=== PATIENT | female | born 1990 | race Caucasian/White ===

== ENCOUNTER 2023-04-09 10:35 | Outpatient (CLI) | payer BC, SELFPAY | END 2023-04-09 10:36 | disposition home or self-care (01) | PROVIDERS: Visit Provider Registered Nurse | DX: Z01.419 Encounter for gynecological examination (general) (routine) without abnormal findings (principal); Z13.6 Encounter for screening for cardiovascular disorders; Z13.1 Encounter for screening for diabetes mellitus | CPT/HCPCS: 80061; 82947 ==

== ENCOUNTER 2024-03-03 13:51 | Outpatient (CLI) | payer BC, SELFPAY ==
--- NOTE | 2024-03-03 14:00 | CRLHL7_ITS ---
For Patients: As a result of the Cures Act, medical imaging exams and procedure reports are released immediately into your electronic medical record. You may view this report before your referring provider. If you have questions, please contact your health care provider. INDICATION: First trimester scan, establish dates. COMPARISON: None. TECHNIQUE: Real-time ferrari-scale imaging of the pelvis was performed. FINDINGS: Sonographic imaging demonstrates a single living intrauterine gestation. The embryo demonstrates a regular cardiac rate measuring 165 beats per minute. The embryo`s crown-rump length measurement of 1.5 cm corresponds to a gestational age of 7 weeks 6 days with a sonographic due date of 10/14/2024. There is a normal-appearing yolk sac. There are no gross abnormalities noted within the embryo at this early state of development. The gestational sac has a normal appearance. There is a 1.7 x 0.9 x 1.3 cm perigestational hemorrhage. The amount of fluid within the sac appears appropriate for gestational age. The cervix is closed. The myometrium appears normal. Corpus luteal cyst right ovary. Left ovary not visualized. There are no suspicious fluid collections noted in the cul-de-sac. IMPRESSION: Single living intrauterine with sonographic gestational age 7 weeks 6 days and sonographic due date of 10/14/2024. Subchorionic hemorrhage measuring 1.7 x 0.9 x 1.3 cm. Dictated by Waldo Moreno MD @ 03/04/2024 10:16:12 AM (Electronically Signed)
== END 2024-03-03 13:52 | disposition home or self-care (01) ==
LOC: US 13:52
PROVIDERS: PCP Registered Nurse; Visit Provider Registered Nurse
DX: Z34.91 Encounter for supervision of normal pregnancy, unspecified, first trimester (principal); O20.9 Hemorrhage in early pregnancy, unspecified; Z3A.01 Less than 8 weeks gestation of pregnancy
CPT/HCPCS: 76817; 86703; 86706; 86803; 86850; 86900; 86901; 87086; 87340; 87491; 87591

== ENCOUNTER 2024-03-03 14:57 | Outpatient (CLI) | payer BC, SELFPAY ==
[2024-03-03 19:45] LABS: Chlamydia DNA Amplified* NOT DETECTED (No Detected); GC DNA Amplified* NOT DETECTED (No Detected)
== END 2024-03-03 14:58 | disposition home or self-care (01) ==
PROVIDERS: PCP Registered Nurse; Visit Provider Registered Nurse
DX: Z34.92 Encounter for supervision of normal pregnancy, unspecified, second trimester (principal)
CPT/HCPCS: 86592; 86703; 86704; 86706; 86762; 86787; 86803; 86850; 86900; 86901; 87086; 87186; 87340; 87491; 87591

== ENCOUNTER 2024-05-04 07:47 | Outpatient (CLI) | payer BC, SELFPAY | END 2024-05-04 07:48 | disposition home or self-care (01) | LOC: NFLDREF 11:37 | PROVIDERS: Visit Provider Obstetrics & Gynecology | DX: Z34.92 Encounter for supervision of normal pregnancy, unspecified, second trimester (principal); R73.09 Other abnormal glucose; Z68.41 Body mass index [BMI] 40.0-44.9, adult; Z3A.15 15 weeks gestation of pregnancy | CPT/HCPCS: 82951; 82952 ==

== ENCOUNTER 2024-05-19 07:40 | Outpatient (CLI) | payer BC, SELFPAY | END 2024-05-19 07:41 | disposition home or self-care (01) | LOC: US 07:41 | PROVIDERS: Visit Provider Obstetrics & Gynecology | DX: Z34.92 Encounter for supervision of normal pregnancy, unspecified, second trimester (principal); Z3A.20 20 weeks gestation of pregnancy | CPT/HCPCS: 76811 ==

== ENCOUNTER 2024-06-16 10:50 | Outpatient (CLI) | payer BC, SELFPAY | END 2024-06-16 10:51 | disposition home or self-care (01) | LOC: US 10:50 | PROVIDERS: Visit Provider Obstetrics & Gynecology | DX: O99.212 Obesity complicating pregnancy, second trimester (principal); Z68.41 Body mass index [BMI] 40.0-44.9, adult; Z3A.23 23 weeks gestation of pregnancy | CPT/HCPCS: 76816 ==

== ENCOUNTER 2024-07-22 07:30 | Outpatient (CLI) | payer BC, SELFPAY | END 2024-07-22 07:31 | disposition home or self-care (01) | LOC: NFLDREF 07-25 04:11 | PROVIDERS: Visit Provider Obstetrics & Gynecology | DX: Z34.93 Encounter for supervision of normal pregnancy, unspecified, third trimester (principal); O99.213 Obesity complicating pregnancy, third trimester; Z3A.28 28 weeks gestation of pregnancy | CPT/HCPCS: 82951; 82952; 86592 ==

== ENCOUNTER 2024-07-22 08:37 | Outpatient (CLI) | payer BC, SELFPAY ==
--- NOTE | 2024-07-22 08:45 | CRLHL7_ITS ---
For Patients: As a result of the Century Cures Act, medical imaging exams and procedure reports are released immediately into your electronic medical record. You may view this report before your referring provider. If you have questions, please contact your health care provider. INDICATION: Obesity COMPARISON: 06/16/2024 TECHNIQUE: Real time ferrari scale imaging of the fetus was performed. FINDINGS: Sonographic imaging demonstrates a single living intrauterine gestation. Fetus demonstrates a regular cardiac rate of 154 beats per minute. Fetus has a vertex position. The placenta lies posterior fundal. Amniotic fluid volume appears normal and there is a single deepest vertical pocket: 5.4 cm. The estimated weight is 1299gm which lies at the 66th %. On the prior OB ultrasound exam dated 06/16/2024 the estimated weight was at the 29th%. BPD 49th percentile. HC 55th percentile. AC is 68th percentile. FL 52nd percentile. The HC/AC ratio measures 1.09 range (0.99-1.21). IMPRESSION: Sonographic gestational age 28 weeks 6 days and sonographic due date of 10/08/2024. Sonographic age is 5 days ahead of the clinical age. Estimated weight at 66th percentile. Abdominal circumference 68th percentile. Dictated by Waldo Moreno MD @ 07/26/2024 6:05:10 AM (Electronically Signed)
== END 2024-07-22 08:38 | disposition home or self-care (01) ==
LOC: US 08:38
PROVIDERS: Visit Provider Obstetrics & Gynecology
DX: O99.213 Obesity complicating pregnancy, third trimester (principal); Z3A.28 28 weeks gestation of pregnancy
CPT/HCPCS: 76816; 82951; 82952

== ENCOUNTER 2024-09-03 09:07 | Outpatient (CLI) | payer BC, SELFPAY ==
--- NOTE | 2024-09-03 09:15 | CRLHL7_ITS ---
For Patients: As a result of the Century Cures Act, medical imaging exams and procedure reports are released immediately into your electronic medical record. You may view this report before your referring provider. If you have questions, please contact your health care provider. INDICATION: BMI TECHNIQUE: Real time ferrari scale imaging of the fetus was performed. COMPARISON: 07/22/2024 FINDINGS: Sonographic imaging demonstrates a single living intrauterine gestation. Fetus demonstrates a regular cardiac rate of 144 beats per minute. Fetus has a vertex position. The placenta lies posterior. Amniotic fluid volume appears normal and there is a single deepest pocket of 4.2 cm. The estimated weight is 2312gm which lies at the 34th %. On the prior OB ultrasound dated 07/22/2024 the estimated weight was at the 66th percentile. BPD 50th percentile. HC 49th percentile. AC 44th percentile. FL is 16th percentile. The fetus was active. Absent breathing movements. There was normal flexion and extension of the trunk and extremities. IMPRESSION: Biophysical profile 03/13. Sonographic gestational age 34 weeks 2 days and sonographic due date 10/13/2024. Good correlation with dates. Normal interval growth. Estimated weight 34th percentile. Abdominal circumference 44th percentile. Dictated by Waldo Moreno MD @ 09/03/2024 11:41:40 AM (Electronically Signed)
== END 2024-09-03 09:08 | disposition home or self-care (01) ==
LOC: US 09:07
PROVIDERS: Visit Provider Obstetrics & Gynecology
DX: O99.213 Obesity complicating pregnancy, third trimester (principal); Z68.41 Body mass index [BMI] 40.0-44.9, adult; Z3A.34 34 weeks gestation of pregnancy
CPT/HCPCS: 76816; 76819

== ENCOUNTER 2024-09-10 07:14 | Outpatient (CLI) | payer BC, SELFPAY ==
--- NOTE | 2024-09-10 07:15 | CRLHL7_ITS ---
For Patients: As a result of the Century Cures Act, medical imaging exams and procedure reports are released immediately into your electronic medical record. You may view this report before your referring provider. If you have questions, please contact your health care provider. INDICATION: High BMI COMPARISON: 09/03/2024 TECHNIQUE: Real time ferrari scale imaging of the fetus was performed. Without non-stress testing. FINDINGS: Sonographic imaging demonstrates a single living intrauterine gestation. Fetus demonstrates a regular cardiac rate of 135 beats per minute. Fetus has a vertex position. The amniotic fluid volume appears normal and there is a single deepest pocket measurement of 3.8 cm. The fetus was active and demonstrated normal breathing movements. There was normal flexion and extension of the trunk and extremities. IMPRESSION: Normal biophysical profile score of 8 out of 8. Dictated by Waldo Moreno MD @ 09/11/2024 6:04:44 PM (Electronically Signed)
== END 2024-09-10 07:15 | disposition home or self-care (01) ==
LOC: US 07:14
PROVIDERS: Visit Provider Obstetrics & Gynecology
DX: O99.210 Obesity complicating pregnancy, unspecified trimester (principal); Z68.41 Body mass index [BMI] 40.0-44.9, adult
CPT/HCPCS: 76819

== ENCOUNTER 2024-09-17 07:15 | Outpatient (CLI) | payer BC, SELFPAY ==
--- NOTE | 2024-09-17 07:15 | CRLHL7_ITS ---
For Patients: As a result of the Century Cures Act, medical imaging exams and procedure reports are released immediately into your electronic medical record. You may view this report before your referring provider. If you have questions, please contact your health care provider. INDICATION: BMI 40-44 COMPARISON: 09/10/2024 TECHNIQUE: Real time ferrari scale imaging of the fetus was performed. Without non-stress testing. FINDINGS: Sonographic imaging demonstrates a single living intrauterine gestation. Fetus demonstrates a regular cardiac rate of 145 beats per minute. Fetus has a vertex position. The amniotic fluid volume appears normal and there is a single deepest pocket measurement of 4.4 cm. The fetus was active and demonstrated normal breathing movements. There was normal flexion and extension of the trunk and extremities. IMPRESSION: Normal biophysical profile score of 8 out of 8. Dictated by Waldo Moreno MD @ 09/17/2024 9:51:59 AM (Electronically Signed)
== END 2024-09-17 07:16 | disposition home or self-care (01) ==
LOC: US 07:16
PROVIDERS: Visit Provider Obstetrics & Gynecology
DX: O99.213 Obesity complicating pregnancy, third trimester (principal); Z3A.36 36 weeks gestation of pregnancy
CPT/HCPCS: 76819

== ENCOUNTER 2024-09-17 08:32 | Outpatient (CLI) | payer BC, SELFPAY ==
[2024-09-18 10:23] LABS: Strep B DNA Probe Negative (Negative)
[2024-09-18 11:21] LABS: Strep B Susceptibility Needed? No
== END 2024-09-17 08:33 | disposition home or self-care (01) ==
PROVIDERS: Visit Provider Obstetrics & Gynecology
DX: Z34.03 Encounter for supervision of normal first pregnancy, third trimester (principal)
CPT/HCPCS: 82565; 82570; 84156; 84450; 84460; 84520; 84550; 87081; 87653

== ENCOUNTER 2024-09-19 10:57 | Outpatient (CLI) | payer BC, SELFPAY ==
[2024-09-19] VITALS (8 sets, daily range): BP systolic 103–117; BP diastolic 63–73; PULSE 86–102; TEMP 36.7
[2024-09-19 11:30] LABS: Hematocrit 34.8 % (33.0-51.0); Hemoglobin* 11.9 gm/dL (12.0-16.0); Mean Corpuscular HGB Conc 34 gm/dL (32-36); Mean Corpuscular Hemoglobin 30 pg (26-34); Mean Corpuscular Volume 89 fL (80-100); Platelet Count* 207 K/uL (140-440); Red Blood Count 3.91 m/uL (4.00-5.20); Slide Review Reflex No; White Blood Count* 6.87 K/uL (4.50-11.00)
[2024-09-19 11:58] LABS: Alanine Aminotransferase* 79 U/L (4-35); Aspartate Amino Transferase* 44 U/L (12-35); Blood Urea Nitrogen* 3 mg/dL (5-24); Creatinine* 0.5 mg/dL (0.5-1.5); Estimated Glomerular Filt Rate 128 ml/min
[2024-09-19 12:18] LABS: Total Protein Urine 9 mg/dL
[2024-09-19 12:19] LABS: Protein Creatinine Ratio Urine 0.07 (0-0.19)
[2024-09-19 12:45] LABS: Albumin* 3.3 g/dL (3.3-5.0)
[2024-09-19 12:48] LABS: Alanine Aminotransferase* 77 U/L (4-35); Alkaline Phosphatase* 136 U/L (40-150); Aspartate Amino Transferase* 42 U/L (12-35); Bilirubin Direct* 0.2 mg/dL (0.0-0.5); Bilirubin Total* 0.4 mg/dL (0.1-1.5); Uric Acid* 3.2 mg/dL (2.2-8.4)
[2024-09-19] MEDS: BETAMETHASONE SOD PHOS/ACETATE 6 MG/ML ML 12 MG IM (13:29)
--- NOTE | 2024-09-19 14:07 | PC.OBNST ---
NST Note NST Note Start: 09/19/24 11:03 Freq: ONCE Status: Active Protocol: Document 09/19/24 13:38 HCR (Rec: 09/19/24 14:07 HCR [id number]) NST Note 1 Para (# of births) 0 EDC 10/13/23 Gestational Age In Weeks & Days 88 Weeks & 6 Days Patient Presented with Complaint(s) of Other Other Complaints Scheduled outpatient for Pre-E labs and serial BP's Reactive Yes Appropriate for Gestational Age Yes RN Paul Villafana, RN Date 09/19/24 Reactive Yes Appropriate for Gestational Age Yes SATURNINO Epstein RNC Date 09/19/24 OB NST charge Yes Complete NST Note via Write Note Yes The provider's electronic signature indicates the NST is reactive/appropriate for gestational age. *Note to provider: If an addendum is required, open the patient's chart and click on the note under the Nurse/Allied Health tab.
--- NOTE | 2024-09-19 16:57 | PM.OBLDTN ---
OB - Triage/Final Diagnosis Visit Information Date of evaluation: 09/19/24 Narrative: The patient is a 33 year old 1 para 0 woman at 36 weeks, 4 days gestation who presents for follow up of elevated diastolic BP and transaminases noted on 09/17. On that day, she had a routine visit in which an isolated BP of 122/90 was noted; this was the first time she has had elevated BP this . She denies GOMEZ, visual changes or RUQ pain at that time. Her labs that day were notable for normal protein:creatinine and normal HELLP labs, with the exception of transaminitis: AST 42, ALT 69 on 09/17. We have no baseline labs for comparison. Given this, she was given a home BP cuff and asked to return for serial BP measurements and repeat labs today. She reports to the RNs that she had occasional, mild GOMEZ. Her BPs at home have all been normal. Systolics 120s or 110s. Today, her blood pressures are all entirely normal which highest SBP 117, highest DBP 72. Labs are again all normal with the exception of continuing transaminitis: AST 42, ALT 77. Labs have included uric acid and complete liver panel. NST is reactive, reassuring. A: Transaminitis in . One isolated elevation of diastolic BP, with all DBPs today solidly within lower end of normal. No proteinuria. Thus, I do not think this is consistent with preeclampsia. Differential diagnosis includes fatty liver, hepatitis. Doubt gallstones given lack of pain. P: I will continue to monitor her closely. In an abundance of caution, she was given betamethasone today, and will return tomorrow for repeat injection. Return to clinic Friday or sooner; will arrange for repeat labs and RUQ US around the time of that visit. Evaluation Laboratory results: Laboratory Tests 09/19/24 09/19/24 09/19/24 Range/Units 11:20 11:20 11:20 WBC 6.87 (4.50-11.00) K/uL RBC 3.91 L (4.00-5.20) m/uL Hgb 11.9 L (12.0-16.0) gm/dL Hct 34.8 (33.0-51.0) % MCV 89 (80-100) fL MCH 30 (26-34) pg MCHC 34 (32-36) gm/dL Plt Count 207 (140-440) K/uL BUN 3 L (5-24) mg/dL Creatinine 0.5 (0.5-1.5) mg/dL Estimated GFR 128 ml/min Uric Acid 3.2 (2.2-8.4) mg/dL Total Bilirubin 0.4 (0.1-1.5) mg/dL Direct Bilirubin 0.2 (0.0-0.5) mg/dL AST 42 H 44 H (12-35) U/L ALT 77 H 79 H (4-35) U/L Alkaline Phosphatase 136 (40-150) U/L Total Protein 6.0 (6.0-8.3) g/dL Albumin 3.3 (3.3-5.0) g/dL Urine Creatinine mg/dL Protein/Creatinin Ratio (0-0.19) Urine Total Protein mg/dL Hepatitis A IgM Ab Pending Hep Bs Antigen Pending Hep B Core IgM Ab Pending Hep C Ab Index (ARIADNA) Pending Hep C Ab Interp ARIADNA Pending Hepatitis Interpret Pending 09/19/24 Range/Units 11:14 WBC (4.50-11.00) K/uL RBC (4.00-5.20) m/uL Hgb (12.0-16.0) gm/dL Hct (33.0-51.0) % MCV (80-100) fL MCH (26-34) pg MCHC (32-36) gm/dL Plt Count (140-440) K/uL BUN (5-24) mg/dL Creatinine (0.5-1.5) mg/dL Estimated GFR ml/min Uric Acid (2.2-8.4) mg/dL Total Bilirubin (0.1-1.5) mg/dL Direct Bilirubin (0.0-0.5) mg/dL AST (12-35) U/L ALT (4-35) U/L Alkaline Phosphatase (40-150) U/L Total Protein (6.0-8.3) g/dL Albumin (3.3-5.0) g/dL Urine Creatinine 126.0 mg/dL Protein/Creatinin Ratio 0.07 (0-0.19) Urine Total Protein 9 mg/dL Hepatitis A IgM Ab Hep Bs Antigen Hep B Core IgM Ab Hep C Ab Index (ARIADNA) Hep C Ab Interp ARIADNA Hepatitis Interpret Vital signs: Vital Signs - 24 hr 09/19/24 11:26 09/19/24 11:41 09/19/24 11:56 Temperature 98.1 F Pulse Rate 102 H 92 93 Blood Pressure 112/73 104/70 108/67 09/19/24 12:11 09/19/24 12:26 09/19/24 12:41 Temperature Pulse Rate 88 86 93 Blood Pressure 113/64 103/65 117/66 09/19/24 12:56 09/19/24 13:13 Temperature Pulse Rate 92 96 Blood Pressure 107/63 115/72 Final Diagnosis (1) Transaminitis: Status: Acute
[2024-09-21 19:25] LABS: Hep A Ab, IgM Negative (Negative); Hep B Core Ab, IgM Negative (Negative); Hep B Surface Antigen Negative (Negative); Hep C Ab by CIA Index 0.08 IV; Hep C Ab by CIA Interp Negative (Negative)
== END 2024-09-19 13:51 | disposition home or self-care (01) ==
LOC: OB CLI 10:57 → OB 10:59
PROVIDERS: Visit Provider Obstetrics & Gynecology
DX: O10.913 Unspecified pre-existing hypertension complicating pregnancy, third trimester (principal); O99.213 Obesity complicating pregnancy, third trimester; R74.01 Elevation of levels of liver transaminase levels; O14.13 Severe pre-eclampsia, third trimester; Z3A.36 36 weeks gestation of pregnancy
CPT/HCPCS: 36415; 59025; 80074; 80076; 82565; 82570; 84156; 84450; 84460; 84520; 84550; 85027; G0463; J0702

== ENCOUNTER 2024-09-20 09:27 | Outpatient (CLI) | payer BC, SELFPAY | END 2024-09-20 09:28 | disposition home or self-care (01) | PROVIDERS: PCP Obstetrics & Gynecology; Visit Provider Obstetrics & Gynecology | DX: O14.13 Severe pre-eclampsia, third trimester (principal); Z3A.36 36 weeks gestation of pregnancy | CPT/HCPCS: 84450; 84460 ==

== ENCOUNTER 2024-09-20 11:56 | Outpatient (CLI) | payer BC, SELFPAY ==
--- NOTE | 2024-09-20 12:15 | CRLHL7_ITS ---
For Patients: As a result of the Century Cures Act, medical imaging exams and procedure reports are released immediately into your electronic medical record. You may view this report before your referring provider. If you have questions, please contact your health care provider. INDICATION: Elevated liver enzymes COMPARISON: none TECHNIQUE: Real time ferrari scale imaging and color Doppler analysis was performed of the right upper quadrant. FINDINGS: The patient`s liver is of normal size and has mildly coarsened echogenicity. Main portal vein measures 8 millimeters. There is a normal appearance of the hepatic IVC and proximal abdominal aorta. There is no evidence of ascites. The gallbladder is of normal size and there is no evidence of intraluminal stones or sludge. The gallbladder wall measures 2 mm in thickness. The common bile duct is of normal size and measures 3.3 mm in diameter at the level of the jason hepatis. The pancreas appears normal. There is no evidence of a stone or hydronephrosis within the right kidney. The right kidney measures 11.9 cm in length. IMPRESSION: Mild hepatic steatosis. Remainder unremarkable. Dictated by Waldo Moreno MD @ 09/20/2024 12:43:11 PM (Electronically Signed)
== END 2024-09-20 11:57 | disposition home or self-care (01) ==
LOC: US 11:57
PROVIDERS: Visit Provider Obstetrics & Gynecology
DX: O14.13 Severe pre-eclampsia, third trimester (principal); Z3A.36 36 weeks gestation of pregnancy
CPT/HCPCS: 76705

== ENCOUNTER 2024-09-20 14:03 | Inpatient (IN) | payer BC, SELFPAY ==
[2024-09-20] VITALS (27 sets, daily range): BP systolic 88–128; BP diastolic 51–75; PULSE 77–99; RESP 16–22; TEMP 36.6–36.8; O2SAT 93–100; BMI 43.2
[2024-09-20] MEDS: MAGNESIUM IV 4 GM/100 ML PIGGYBACK IVPB (14:50)
[2024-09-20] MEDS: LACTATED RINGERS 1000 ML 1,000 ML 75 ML IV (14:51)
[2024-09-20] MEDS: MAGNESIUM Infusion 40 GM/1,000 ML IV.SOLN IVPB (15:24)
[2024-09-20 16:14] LABS: Hematocrit 33.4 % (33.0-51.0); Hemoglobin* 10.9 gm/dL (12.0-16.0); Mean Corpuscular HGB Conc 33 gm/dL (32-36); Mean Corpuscular Hemoglobin 30 pg (26-34); Mean Corpuscular Volume 93 fL (80-100); Platelet Count* 211 K/uL (140-440); Red Blood Count 3.58 m/uL (4.00-5.20); White Blood Count* 10.32 K/uL (4.50-11.00)
[2024-09-20 16:36] LABS: Alanine Aminotransferase* 112 U/L (4-35); Aspartate Amino Transferase* 63 U/L (12-35); Blood Urea Nitrogen* 4 mg/dL (5-24); Creatinine* 0.4 mg/dL (0.5-1.5); Est. Creatinine Clearance* 167.03; Estimated Glomerular Filt Rate 135 ml/min
[2024-09-20 16:41] LABS: Slide Review Reflex No
[2024-09-20 17:36] LABS: Fibrinogen* 539 mg/dL (200-450); Partial Thromboplastin Time* 23 Seconds (23-33)
--- NOTE | 2024-09-20 19:02 | P.OBHP_ITS ---
OB - H&P: HPI Labor/Induction History of Present Illness Time Seen by Provider: 17:30 Date Seen: 09/20/24 Chief Complaint: The patient is a 33 year old 1 para 0 at 36w5d gestation, who presents for IOL due to atypical pre-eclampsia with severe features. Endorses new onset of persistent headache that she's been treating with caffeine. Denies vision changes, SOB, right upper quadrant/epigastric pain, or rapidly expanding edema. She's only had 1 mild ranging BP. However, her transaminitis has been up trending for the last 4 days. Currently AST is at 63 and ALT at 112. Abdominal US: Mild steatosis. Remainder unremarkable. Denies any new risk factors for hepatitis. Hepatitis panel pending. Denies itching, hepatotoxic ingestion, or alcohol abuse. Blood glucose today was 130. Active movement. Denies Ctx, LOF, vaginal bleeding or abnormal vaginal discharge. There was great difficulty with IV insertion. It took multiple attempts/ people from Anesthesiology team to be able to put in 2 IVs for her. One IV was placed on her right hand and the other her right wrist. She is having significant discomfort with having 2 IV sites in the same area. Reports that she did not feel well during insertion attempts. Had flushing/dizziness. Has improved since. Of note, she had not had anything to drink all day per request of radiology for abdominal ultrasound. She feels very dehydrated in her urine is extremely concentrated. She has IV fluid running currently. Will ask for reassessment of IV sites. Chief complaint: maternity Narrative: Denisse Gray is a 33 year old female Specific Issues/Plans G 1 P 0 H&P 09/17 Dr. Barajas in the [facility] in [place] in June!! Only sex and name 1. BMI 43.9 * Hemoglobin A1c WNL * Nutrition referral placed. * Begin low-dose aspirin at 12 weeks to reduce risk of preeclampsia * Early GDM testing between 16 and 20 weeks - elevated at 160 mg/dL * [x] Early 3 hour GTT: all values normal * [x] repeat 3 hour at 28 weeks - all normal * Level 2 ultrasound: within normal limits of visualized anatomy, repeat in 4 weeks to complete * [x] f/u US on 06/16 with MFM at [facility] - anatomy WNL, growth at 26%ile and AC 24%ile * Anesthesia referral * Weekly BPP beginning at 34 weeks ( testing form completed) * Growth ultrasound at 28 and 34 weeks 2. Asymptomatic UTI. Treated with cephalexin. 3. One, isolated elevated diastolic BP of 90 on 09/17. HELLP labs notable for normal protein:creatinine, elevated transaminases (AST 42, ALT 69 on 09/17) On Center 09/19: All BPs low-normal, AST 42, ALT 77, still normal protein:creatinine No baseline LFTs available for review Hepatitis panel pending. Betamethasone #1 given 09/19 To arrange for RUQ US Covid: Not vaccinated. Recommended. Declines. Flu: Declines Tdap: 08/06/24 RSV: 09/10 Growth ultrasound 09/03: Composite 2312 g, 34th percentile. BPD 58th percentile, HC 49th percentile, AC 44th percentile, femur length 16 percentile. Vertex, SDP 4.2cm. 03/13 BPP with subsequent reactive NST in clinic. Meds Home Medications and Allergies Home Medications ?Medication ?Instructions ?Recorded ?Confirmed ?Type docosahexaenoic acid 200 mg mg PO 03/03/24 09/20/24 History capsule ( DHA) calcium 600 mg (as cap PO 04/01/24 09/20/24 History carbonate)-vitamin D3 10 mcg (400 unit) capsule aspirin 81 mg chewable tablet 81 mg PO QDAY 09/03/24 09/20/24 History Allergies Allergy/AdvReac Type Severity Reaction Status Date / Time No Known Drug Allergies Allergy Verified 09/20/24 10:35 OB - H&P: Exam Physical Exam: Vital signs: Temp Pulse Resp BP Pulse Ox 98.2 F 82 16 128/75 100 09/20/24 18:10 09/20/24 18:10 09/20/24 18:10 09/20/24 18:10 09/20/24 18:10 Narrative: Physical exam: General: No acute distress Psych: Alert and oriented x4, full affect HEENT: Normocephalic, atraumatic Heart: Regular rate and rhythm, no murmur rub or gallop Lungs: Clear to auscultation bilaterally Abdomen: Gravid, soft, no tenderness, rebound, or guarding. Skin: No lesions or rashes Lower extremities: +1 bilateral lower extremity edema Pelvic exam: 1/50/-3, moderate soft, posterior. OB - Results Labs Labs: Short CBC 09/20/24 Range/Units 16:03 WBC 10.32 (4.50-11.00) K/uL Hgb 10.9 L (12.0-16.0) gm/dL Hct 33.4 (33.0-51.0) % Plt Count 211 (140-440) K/uL BMP 09/20/24 16:03 BUN 4 L Creatinine 0.4 L Liver Function 09/20/24 Range/Units 16:03 AST 63 H (12-35) U/L ALT 112 H (4-35) U/L OB - Problem Based A/P Additional Plan (1) Pre-eclampsia, severe: Status: Acute (2) Obesity affecting : Status: Acute Plan Atypical pre-eclampsia with severe features - Based on one mild ranging BP 122/90, new onset headache, and ALT/AST twice the upper limit of normal and up trending - BPs 122/75 - Symptoms: headaches - Magnesium: on Magnesium for seizure ppx - IV antihypertensives: currently not indicated - Pre-eclampsia labs on 09/20/24: Hgb 10.9 Plt 211 Cr 0.4 ALT 112 AST 63, P/C ratio pending - Close monitoring and labs Q6H Induction - SVE 1/50/-3, moderate soft, posterior - [place] quiescent - IOL plan: Cook cath placed @ 1800 and inflated to 60/60cc. Will start titrating pitocin at midnight Wellbeing - NST: 130s bpm. Cat I - [place]: Quiescent
[2024-09-20 20:46] LABS: Protein Creatinine Ratio Urine 1.13 (0-0.19); Total Protein Urine 70 mg/dL
[2024-09-20 22:00] LABS: INR 0.99 (0.91-1.10); Prothrombin Time 13.7 Seconds
[2024-09-21] VITALS (95 sets, daily range): BP systolic 69–118; BP diastolic 37–62; PULSE 66–129; RESP 16–20; TEMP 36.4–37.1; O2SAT 97–100
[2024-09-21] MEDS: OXYTOCIN 30 unit/500 ML in NS 30 UNIT/500 ML BAG IVPB (00:16)
[2024-09-21 01:01] LABS: Hematocrit 34.2 % (33.0-51.0); Hemoglobin* 11.5 gm/dL (12.0-16.0); Mean Corpuscular HGB Conc 34 gm/dL (32-36); Mean Corpuscular Hemoglobin 31 pg (26-34); Mean Corpuscular Volume 91 fL (80-100); Platelet Count* 188 K/uL (140-440); Red Blood Count 3.76 m/uL (4.00-5.20); White Blood Count* 8.75 K/uL (4.50-11.00)
[2024-09-21 01:04] LABS: Slide Review Reflex No
[2024-09-21 01:06] LABS: Alanine Aminotransferase* 141 U/L (4-35); Aspartate Amino Transferase* 78 U/L (12-35); Blood Urea Nitrogen* 3 mg/dL (5-24); Creatinine* 0.5 mg/dL (0.5-1.5); Est. Creatinine Clearance* 133.62; Estimated Glomerular Filt Rate 128 ml/min
[2024-09-21 01:11] LABS: Magnesium* 4.6 mg/dL (1.5-2.6)
[2024-09-21] MEDS: LACTATED RINGERS 1000 ML 1,000 ML 75 ML IV ×2 (02:39→15:32)
[2024-09-21 06:15] LABS: Hematocrit 36.8 % (33.0-51.0); Hemoglobin* 12.4 gm/dL (12.0-16.0); Mean Corpuscular HGB Conc 34 gm/dL (32-36); Mean Corpuscular Hemoglobin 31 pg (26-34); Mean Corpuscular Volume 91 fL (80-100); Platelet Count* 188 K/uL (140-440); Red Blood Count 4.05 m/uL (4.00-5.20); Slide Review Reflex No; White Blood Count* 9.35 K/uL (4.50-11.00)
[2024-09-21 06:26] LABS: Alanine Aminotransferase* 186 U/L (4-35); Aspartate Amino Transferase* 103 U/L (12-35); Blood Urea Nitrogen* 2 mg/dL (5-24); Creatinine* 0.5 mg/dL (0.5-1.5); Est. Creatinine Clearance* 133.62; Estimated Glomerular Filt Rate 128 ml/min
[2024-09-21 06:28] LABS: Magnesium* 4.9 mg/dL (1.5-2.6)
--- NOTE | 2024-09-21 09:07 | PM.OBPNL ---
Subjective Time Seen by Provider: 08:40 Date Seen: 09/21/24 Narrative: Denisse is a 33 yo woman at 36 6/7 weeks' gestation here for IOL for atypical presentation of preeclampsia with severe features, based on transaminitis and proteinuria. Thus far, she has had Cook Catheter for cervical ripening and pitocin for augmentation. This morning, she is not feeling contractions. She has no complaints. She continues on magnesium sulfate infusion. She has [address] Blood draws are a particular difficulty for her; she is a difficult draw. Objective Vital Signs: Last Vital Signs Temp 98 F 09/21/24 04:57 Pulse 89 09/21/24 08:07 Resp 18 09/21/24 08:07 BP 109/62 09/21/24 08:07 Pulse Ox 99 09/21/24 08:07 Comments: Gen - NAD Abd - Soft, NT, gravid SVE- 4.5 / 75 / -2. Attempted AROM; no fluid noted after 2 attempts. tracing: Baseline 120 / accels present / no decelerations /moderate variability. Contractions Q 5 minutes. Assessment Assessment: early labor Status: Category l Tracing Comments: Category I tracing GBS negative Labor Progress: Now with favorable cervix. While I am nearly certain AROM was successful, she has had no gush of fluid. Maternal Status: Suspected atypical HELLP syndome. Transaminitis, trending upwards. BP and other labs stable. Plan Plan: Follow for loss of fluid. Continuous monitoring Continue magnesium sulfate infusion Continue HELLP labs Q 6 h
[2024-09-21] MEDS: MAGNESIUM Infusion 40 GM/1,000 ML IV.SOLN IVPB (10:51)
[2024-09-21 11:33] LABS: Hematocrit 32.4 % (33.0-51.0); Hemoglobin* 10.9 gm/dL (12.0-16.0); Mean Corpuscular HGB Conc 34 gm/dL (32-36); Mean Corpuscular Hemoglobin 31 pg (26-34); Mean Corpuscular Volume 91 fL (80-100); Platelet Count* 173 K/uL (140-440); Red Blood Count 3.56 m/uL (4.00-5.20); White Blood Count* 8.97 K/uL (4.50-11.00)
[2024-09-21 11:43] LABS: Slide Review Reflex No
[2024-09-21 11:48] LABS: Creatinine* 0.5 mg/dL (0.5-1.5); Est. Creatinine Clearance* 133.62; Estimated Glomerular Filt Rate 128 ml/min
[2024-09-21 11:49] LABS: Alanine Aminotransferase* 179 U/L (4-35); Aspartate Amino Transferase* 102 U/L (12-35); Blood Urea Nitrogen* 3 mg/dL (5-24)
[2024-09-21 12:07] LABS: Magnesium* 5.2 mg/dL (1.5-2.6)
--- NOTE | 2024-09-21 13:10 | PM.OBPNL ---
Subjective Time Seen by Provider: 12:45 Date Seen: 09/21/24 Narrative: Denisse is a 33 yo woman at 36 6/7 weeks' gestation here for IOL for atypical presentation of preeclampsia with severe features, based on transaminitis and proteinuria. Thus far, she has had Cook Catheter for cervical ripening and pitocin for augmentation, followed by AROM. She is starting feel contractions stronger. She continues on magnesium sulfate infusion. She has [address] Blood draws are a particular difficulty for her; she is a difficult draw. Objective Exam: Gen - NAD SVE- 5 / 75 / -2. She is not having leakage of fluid, but I am unable to rupture any continuing bag of water; it truly seems that the bag is now absent. tracing: Baseline 125 / accels present / intermittent brief variable decelerations /moderate variability. Contractions Q 3-4 minutes. Vital Signs: Last Vital Signs Temp 98.5 F 09/21/24 12:52 Pulse 71 09/21/24 12:52 Resp 16 09/21/24 12:52 BP 118/59 L 09/21/24 12:52 Pulse Ox 98 09/21/24 10:01 Comments: Labs from 08/25 3:00 a.m.: Hemoglobin 10.9, hematocrit 32.4, platelets 173 Creatinine 0.5 AST 102, down 1 point from 6:00 a.m. labs ALT 179, down from 186 at 6:00 a.m. Magnesium level 5.2 mg/dl Contractions Pitocin Rate (mU/min): 16 Assessment Assessment: early labor Status: Category l Tracing Comments: Category 2 tracing for intermittent variable decelerations, overall reassuring. GBS negative Labor Progress: Little change since last exam, though her contractions feel stronger to her. Maternal Status: Suspected atypical HELLP syndome. Transaminitis, elevated but currently stable. BP and other labs stable. Plan Plan: Continue Pitocin augmentation Continuous monitoring Continue magnesium sulfate infusion Continue HELLP labs Q 6 h
[2024-09-21] MEDS: LIDOCAINE 2% (PF) 5 ML VIAL EPIDURAL (16:11)
[2024-09-21] MEDS: ROPIVACAINE 0.2% 100 ml 100 ML 12 MG EPIDURAL (16:11)
[2024-09-21] MEDS: ROPIVACAINE 0.2 % PF 10 ML INJ 20 MG EPIDURAL (16:11)
[2024-09-21] MEDS: PHENYLEPHRINE 100 MCG/ML SYRINGE IVP ×3 (16:37→19:33)
--- NOTE | 2024-09-21 16:43 | PM.ANBPRC ---
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 What is your current living situation?: I presently have a place to live Problems where you live: no known problems In the past 12 months, utilities in danger of being shut off: no In the past 12 mos, have been you worried that your food would run out before you had money to buy more?: never true In the past 12 mos, the food you bought just didn't last and you didn't have money to buy more?: never true Smoking Status: Never smoker How often does anyone, including family, friends and others, physically hurt you: never How often does anyone, including family, friends and others, insult or talk down to you: never How often does anyone, including family, friends and others, threaten you with harm: never How often does anyone, including family, friends and others, scream or curse at you: never Meds Home Medications and Allergies Home Medications ?Medication ?Instructions ?Recorded ?Confirmed ?Type docosahexaenoic acid 200 mg mg PO 03/03/24 09/20/24 History capsule ( DHA) calcium 600 mg (as cap PO 04/01/24 09/20/24 History carbonate)-vitamin D3 10 mcg (400 unit) capsule aspirin 81 mg chewable tablet 81 mg PO QDAY 09/03/24 09/20/24 History Allergies Allergy/AdvReac Type Severity Reaction Status Date / Time No Known Drug Allergies Allergy Verified 09/20/24 10:35 Results Labs Labs: Laboratory Results - last 24 hr 09/20/24 09/20/24 09/20/24 16:03 19:15 23:25 WBC 8.75 RBC 3.76 L Hgb 11.5 L Hct 34.2 MCV 91 MCH 31 MCHC 34 Plt Count 188 INR 0.99 APTT 23 Fibrinogen 539 H BUN 3 L Creatinine 0.5 Estimated Creat Clear 133.62 Estimated GFR 128 Magnesium 4.6 H* AST 78 H ALT 141 H Urine Creatinine 62.0 Protein/Creatinin Ratio 1.13 H Urine Total Protein 70 Blood Type O Positive Antibody Screen NEGATIVE 09/21/24 09/21/24 05:39 11:23 WBC 9.35 8.97 RBC 4.05 3.56 L Hgb 12.4 10.9 L Hct 36.8 32.4 L MCV 91 91 MCH 31 31 MCHC 34 34 Plt Count 188 173 INR APTT Fibrinogen BUN 2 L 3 L Creatinine 0.5 0.5 Estimated Creat Clear 133.62 133.62 Estimated GFR 128 128 Magnesium 4.9 H* 5.2 H* AST 103 H 102 H ALT 186 H 179 H Urine Creatinine Protein/Creatinin Ratio Urine Total Protein Blood Type Antibody Screen Vital Signs Vital Signs: Last Vital Signs Temp 98.3 F 09/21/24 15:09 Pulse 89 09/21/24 16:42 Resp 16 09/21/24 15:09 BP 108/60 09/21/24 16:42 Pulse Ox 98 09/21/24 10:01 Weight: 110.767 kg Height: 160.02 cm Anesthesia Procedures Epidural Insertion Patient Location: OB Start Time: 16:00 Stop Time: 16:45 Start Date: 09/21/24 Stop Date: 09/21/24 Reason for Block: procedure for pain Patient Position: sitting Performed By: Efrain Don Preanesthetic Checklist: IV checked, risks and benefits discussed, surgical consent, monitors and equipment checked, pre-op evaluation, timeout performed and anesthesia consent Prep: chlorhexidine gluconate Monitoring: blood pressure monitoring, continuous pulse oximetry and heart rate Approach: midline Vertebral Space: lumbar (1-5) Epidural Technique: ASHLEY air Needle Type: Tuohy needle Injection Technique: continuous catheter Needle gauge: 17 Needle Length (cm): 10 cm Needle Insertion Depth (cm): 7 Catheter Gauge: 19 Catheter Type: multi-orifice Catheter at skin depth (cm): 13 Test Dose Result: negative and lidocaine 1.5% with epinephrine 1 to 200,000
[2024-09-21] MEDS: ePHEDrine sulfate 5 MG/ML inj 10 MG IVP ×3 (16:56→19:46)
[2024-09-21 17:33] LABS: Hematocrit 33.1 % (33.0-51.0); Mean Corpuscular HGB Conc 33 gm/dL (32-36); Mean Corpuscular Hemoglobin 31 pg (26-34); Mean Corpuscular Volume 92 fL (80-100); Platelet Count* 181 K/uL (140-440); Red Blood Count 3.61 m/uL (4.00-5.20); White Blood Count* 11.37 K/uL (4.50-11.00)
[2024-09-21 17:34] LABS: Slide Review Reflex No
[2024-09-21 17:37] LABS: Creatinine* 0.5 mg/dL (0.5-1.5); Est. Creatinine Clearance* 133.62; Estimated Glomerular Filt Rate 128 ml/min
[2024-09-21 17:38] LABS: Alanine Aminotransferase* 189 U/L (4-35); Aspartate Amino Transferase* 101 U/L (12-35); Blood Urea Nitrogen* 4 mg/dL (5-24)
[2024-09-21 17:41] LABS: Magnesium* 5.2 mg/dL (1.5-2.6)
--- NOTE | 2024-09-21 18:32 | PM.OBPNL ---
Subjective Time Seen by Provider: 17:15 Date Seen: 09/21/24 Narrative: Denisse is a 33 yo woman at 36 6/7 weeks' gestation here for IOL for atypical presentation of preeclampsia with severe features, based on transaminitis and proteinuria. Thus far, she has had Cook Catheter for cervical ripening and pitocin for augmentation, followed by AROM. Since our last exam, she has had an epidural. She is feeling no contractions. She continues on magnesium sulfate infusion. She has [address] Blood draws are a particular difficulty for her; she is a difficult draw. Objective Exam: Gen - NAD SVE- 5 / 75 / -2. She is not having leakage of fluid, but I am unable to rupture any continuing bag of water. tracing: Baseline 135 / accels present / intermittent brief variable decelerations /moderate variability. Contractions Q 3 minutes. Vital Signs: Last Vital Signs Temp 98.3 F 09/21/24 17:44 Pulse 88 09/21/24 18:31 Resp 16 09/21/24 15:09 BP 107/60 09/21/24 18:31 Pulse Ox 98 09/21/24 10:01 Comments: Labs from 5:17 p.m.: Hemoglobin 11.0, hematocrit 33.1, platelets 181 Creatinine 0.5 Magnesium 5.2 mg/dl AST 101, down from 102 at last check ALT 189, up from 179 at last check Contractions Pitocin Rate (mU/min): 22 Assessment Assessment: early labor Amniotic Membrane Status: AROM Status: Category l Tracing Comments: Category 1 tracing GBS negative Labor Progress: No change since last exam Maternal Status: Suspected atypical HELLP syndome. Transaminitis, elevated but currently stable. BP and other labs stable. Plan Plan: Continue Pitocin augmentation Continuous monitoring Continue magnesium sulfate infusion Continue HELLP labs Q 6 h
[2024-09-21 22:47] LABS: Total Protein Urine 24 mg/dL
[2024-09-21 22:48] LABS: Creatinine Urine 10.2 mg/dL; Protein Creatinine Ratio Urine 2.35 (0-0.19)
--- NOTE | 2024-09-21 23:32 | PM.OBPNL ---
Subjective Time Seen by Provider: 23:30 Date Seen: 09/21/24 Narrative: Denisse is a 33 yo woman at 36 6/7 weeks' gestation here for IOL for atypical presentation of preeclampsia with severe features, based on transaminitis and proteinuria. Thus far, she has had Cook Catheter for cervical ripening and pitocin for augmentation, followed by AROM at 0830. She has an epidural. She is feeling vaginal pressure with contractions. She continues on magnesium sulfate infusion. She has [address] Blood draws are a particular difficulty for her; she is a difficult draw. Objective Exam: Gen - NAD SVE- 5 / 75 / -2. She is not having leakage of fluid tracing: Baseline 130 / accels present / no decelerations /moderate variability. Contractions Q 3-5 minutes. Vital Signs: Last Vital Signs Temp 98.5 F 09/21/24 22:06 Pulse 97 09/21/24 23:25 Resp 16 09/21/24 15:09 BP 92/50 L 09/21/24 23:25 Pulse Ox 100 09/21/24 20:49 Comments: Labs from 5:17 p.m.: Hemoglobin 11.0, hematocrit 33.1, platelets 181 Creatinine 0.5 Magnesium 5.2 mg/dl AST 101, down from 102 at last check ALT 189, up from 179 at last check Contractions Pitocin Rate (mU/min): 22 Assessment Assessment: early labor Amniotic Membrane Status: AROM Status: Category l Tracing Comments: Category 1 tracing GBS negative Labor Progress: Failed induction of labor; we have not achieved active labor after 15 hours of ruptured membranes on Pitocin augmentation. Maternal Status: Suspected atypical HELLP syndome. Transaminitis, elevated but currently stable. BP currently low-normal, other labs stable. Plan Plan: Primary for failed IOL. We discussed risks of , including bleeding / hemorrhage, infection, scarring, thromboembolism, and likely recovery. We discussed impact on future . Consent form reviewed with and signed by patient. Cefazolin and azithromycin in pre-op prophylaxis. Stop Pitocin augmentation Continuous monitoring Continue magnesium sulfate infusion
[2024-09-21] MEDS: AZITHROMYCIN 500 MG in 0.9 % SODIUM CHLORIDE 250 ml 250 ML 255 MG IVPB (23:52)
[2024-09-22] VITALS (22 sets, daily range): BP systolic 92–108; BP diastolic 52–70; PULSE 62–80; RESP 16–17; TEMP 36.5–36.9; O2SAT 96–99
--- NOTE | 2024-09-22 01:28 | PM.OBPRCCS ---
Procedure Date of procedure: 09/22/24 Pre-op diagnosis: 37 weeks' gestation Atypical HELLP syndrome Failed induction of labor Post-op diagnosis: same Procedure Done: Global (Primary low transverse delivery with excision of paratubal cyst) Will [facility] bill your pro fee for this procedure?: Yes Blood Loss Measurement Type: QBL (1325) Bakri Used: No IV fluids (mL): 500 Urine Output (mL): 600 Urine Output Comment: clear Surgeon: Fabby Barajas MD Anesthesia Type: Epidural Findings: 1. Female infant, cephalic OA presentation, Apgars of 7 and 8, weight 2740 g = 6 lbs 1 oz 2. 1 cm simple left paratubal cyst on long stalk. Otherwise normal appearance of uterus, bilateral tubes and ovaries Procedure Name: Primary low transverse with excision of paratubal cyst Procedure Description: Patient was taken to the operating room with IV running. She received cefazolin and azithromycin in preoperative prophylaxis. Epidural anesthesia had previously been administered and was dosed to adequacy. Trujillo catheter was inserted. She was prepped and draped in the usual sterile fashion. Anesthesia was tested and found to be adequate. A low-transverse skin incision was made with a scalpel and carried through to the underlying layer of fascia with the scalpel. The subcutaneous fat was dissected off the underlying fascia with Bovie. The fascia was nicked in the midline with a scalpel, and this incision was extended laterally with scissors. The rectus muscles were in the midline. Peritoneum was identified and entered bluntly. Bovie was used to widen this opening laterally. Bhupendra O retractor was inserted and tightened down, providing excellent visualization of the lower uterine segment. The bladder reflection was found to be well below the planned site for hysterotomy. Low-transverse uterine incision was made with a scalpel. Incision was widened bluntly. The 's head was grasped through the hysterotomy and delivered with the help of fundal pressure. The remainder of the body delivered without incident. Cord was clamped and cut after 30 seconds. Infant was handed off to attending nurses. The placenta was delivered with gentle traction on the cord. The uterus was cleaned of all clots and debris with the dry lap pad. Uterine atony was immediately noted; this was managed with Pitocin, tranexamic acid and methergine. Uterine tone then improved. The hysterotomy was reapproximated with 0 Vicryl in a running, locked fashion. Second layer of the same suture was used in imbricating fashion to obtain hemostasis. The adnexa were examined and noted to be normal in appearance. The cul-de-sac and gutters were cleansed with dampened laparotomy sponge, removing any further clots and debris. The Bhupendra O retractor was removed. The hysterotomy was reexamined and found to be hemostatic. The above described paratubal cyst was lying over the repaired hysterotomy, and it was amputated along its stalk. Hemostasis was noted. The peritoneum was reapproximated with 2 0 Vicryl in a running fashion. The rectus muscles were examined and found to be hemostatic. The fascia was reapproximated with 0 Vicryl in a running fashion. Subcutaneous fat was irrigated and Bovie used on oozing vessels. The subcutaneous fat was reapproximated with 2 0 plain gut suture in an interrupted fashion. The skin was closed with a subcuticular stitch of 4-0 Monocryl. Surgical glue was applied above this. Patient tolerated procedure well was taken to recovery area in stable condition. Pathology: specimen obtained, sent to pathology (Placenta) Surgery Debrief Performed: Yes Condition: stable Infant total score - 1 minute: 7 total score - 5 minute: 8
--- NOTE | 2024-09-22 01:58 | W.ANESCHARGE ---
Anesthesia Charges Start Date/Time Anesthesia Start Date: 09/22/24 Anesthesia Start Time: 00:22 Stop Date/Time Anesthesia Stop Date: 09/22/24 Anesthesia Stop Time: 01:57 Summary Emergency: [facility]IDENT[facility]STALLER
--- NOTE | 2024-09-22 01:59 | P.NB_ITS ---
Nerve Block Nerve Block Time Seen by Provider: 01:56 Date Seen: 09/22/24 Type of block requested by surgeon for post-operative analgesia: TAP Side: bilateral Time out performed: Yes Verification of patient name: Yes Verification of date of : Yes Name of person performing procedure: mantyl Continuous monitoring Was continuous monitoring of O2 sat, B/P, hospital monitor, recorded every 15 minutes?: Yes Procedure Checklist: sterile prep, needles and gloves Ultrasound guided. Images saved: Yes Medications given in 5ml increments after negative aspiration: Marcaine %: 0.25 mL: 30 and Exparel mL: 10 Patient tolerated procedure well: Yes Block Charges Block Charge (with Pro Fee): TAP Bilateral
[2024-09-22 02:14] LABS: Hematocrit 29.9 % (33.0-51.0); Mean Corpuscular HGB Conc 33 gm/dL (32-36); Mean Corpuscular Hemoglobin 31 pg (26-34); Mean Corpuscular Volume 92 fL (80-100); Platelet Count* 147 K/uL (140-440); Red Blood Count 3.26 m/uL (4.00-5.20); White Blood Count* 13.34 K/uL (4.50-11.00)
[2024-09-22 02:18] LABS: Slide Review Reflex No
[2024-09-22 02:29] LABS: Alanine Aminotransferase* 162 U/L (4-35); Aspartate Amino Transferase* 91 U/L (12-35); Blood Urea Nitrogen* 2 mg/dL (5-24); Creatinine* 0.5 mg/dL (0.5-1.5); Est. Creatinine Clearance* 133.62; Estimated Glomerular Filt Rate 128 ml/min
[2024-09-22 02:30] LABS: Magnesium* 5.3 mg/dL (1.5-2.6)
[2024-09-22] MEDS: LACTATED RINGERS 1000 ML 1,000 ML 75 ML IV ×2 (06:03→19:10)
[2024-09-22] MEDS: MAGNESIUM Infusion 40 GM/1,000 ML IV.SOLN IVPB (06:04)
[2024-09-22] MEDS: ACETAMINOPHEN 500 MG TABLET 1000 MG PO ×3 (06:26→18:53)
[2024-09-22 08:13] LABS: Hematocrit 28.1 % (33.0-51.0); Hemoglobin* 9.4 gm/dL (12.0-16.0); Mean Corpuscular HGB Conc 34 gm/dL (32-36); Mean Corpuscular Hemoglobin 31 pg (26-34); Mean Corpuscular Volume 92 fL (80-100); Platelet Count* 160 K/uL (140-440); Red Blood Count 3.07 m/uL (4.00-5.20)
[2024-09-22] MEDS: FERROUS SULFATE 325 MG TABLET PO (08:19)
[2024-09-22] MEDS: KETOROLAC 30 MG/ML inj IVP ×3 (08:19→20:14)
[2024-09-22] MEDS: DOCUSATE SODIUM 100 MG CAPSULE PO (08:19)
[2024-09-22 08:25] LABS: Slide Review Reflex No
--- NOTE | 2024-09-22 08:30 | P.OBPN_ITS ---
OB - PN:Subj Subjective Time Seen by Provider: 08:30 Date Seen: 09/22/24 Narrative: Denisse is a 33yo seen on POD0 from primary performed for failed induction of labor, where delivery was recommended in the setting of an atypical presentation for PreE with severe features (transaminitis, proteinuria, only 1 elevated blood pressure). was complicated by hemorrhage with QBL of 1002mL. Denisse is feeling okay this morning. She is emotional considering her induction labor course. Denies any headache, vision changes or right upper quadrant pain. Pain is well controlled, she has not yet been up and out of bed. Tolerating p.o. liquids, has not trialed solids. No nausea/vomiting. Has not yet passed flatus. Voiding via Trujillo. No concerning vaginal bleeding. Baby Monique is doing well. They are working on breast feeding, sherri Amaya has had a hard time latching thus they are hand expressing/spoon feeding. OB - PN: Obj Exam Physical Exam: Vital signs: Temp Pulse Resp BP Pulse Ox O2 Del Method 97.7 F 71 16 103/66 97 Room Air 09/22/24 08:12 09/22/24 08:12 09/22/24 08:12 09/22/24 08:12 09/22/24 08:12 09/22/24 08:12 Narrative: General: Alert and oriented, no acute distress Psych: Appropriate mood and affect, intermittently tearful. Heart: Regular rate and rhythm, no rubs murmurs or gallops Lungs: Clear to posterior auscultation, no wheezes rales or crackles Abdomen: Soft, nondistended and nontender. Fundus palpated at umbilicus. Dressing overlying incision is clean/dry. Extremities: 1+ pitting edema of the right lower extremity, 2+ on the left. Calves are non erythematous, or tender. OB - PN: Obj Data Labs Labs: Laboratory Results - last 24 hr 09/21/24 09/21/24 09/21/24 11:23 17:17 21:28 WBC 8.97 11.37 H RBC 3.56 L 3.61 L Hgb 10.9 L 11.0 L Hct 32.4 L 33.1 MCV 91 92 MCH 31 31 MCHC 34 33 Plt Count 173 181 BUN 3 L 4 L Creatinine 0.5 0.5 Estimated Creat Clear 133.62 133.62 Estimated GFR 128 128 Magnesium 5.2 H* 5.2 H* AST 102 H 101 H ALT 179 H 189 H Urine Creatinine 10.2 Protein/Creatinin Ratio 2.35 H Urine Total Protein 24 24 09/22/24 02:05 08:05 WBC 13.34 H 12.40 H RBC 3.26 L 3.07 L Hgb 10.0 L 9.4 L Hct 29.9 L 28.1 L MCV 92 92 MCH 31 31 MCHC 33 34 Plt Count 147 160 BUN 2 L Creatinine 0.5 Estimated Creat Clear 133.62 Estimated GFR 128 Magnesium 5.3 H* AST 91 H ALT 162 H Urine Creatinine Protein/Creatinin Ratio Urine Total Protein OB - PN: A/P Delivery Assessment and Plan (1) Pre-eclampsia, severe: Status: Acute Assessment and Plan: Denisse is a 33-year-old seen on postoperative day 0 from a primary . was complicated by atypical preeclampsia with severe features necessitating delivery at 36 weeks in the setting of rising transaminitis, p roteinuria but only 1 elevated blood pressure. She had a primary overnight for failed induction of labor, QBL of 1002 mL. Denisse is feeling okay this morning, has not yet started to progress her postoperative milestones as she has only a few hours from her surgery. Encouraged her to work on p.o. intake, ambulation, Trujillo removal and pain control through the course of the day. Most importantly, encouraged her to work on bonding and with reilly Amaya as she notes that her course has been challenging. Emotional support provided, discussed methods for support. Plan to continue to trend her labs q6h, a set is pending now. Her last complete set at to a.m. revealed improvement in her transaminitis, with AST of 91 (from 101) and ALT of 162 (from 189), normal platelets and creatinine. Patient's blood pressure remains in the low normal range. No indication for antihypertensive regimen at this time. Continue magnesium sulfate for a total of 24 hours post delivery, ending around midnight tonight. Robust auto diuresis ongoing, 2.8L since midnight. Disposition: Inpatient (2) Obesity affecting : Status: Acute
[2024-09-22 08:33] LABS: Creatinine* 0.4 mg/dL (0.5-1.5); Est. Creatinine Clearance* 167.03; Estimated Glomerular Filt Rate 135 ml/min
[2024-09-22 08:34] LABS: Alanine Aminotransferase* 161 U/L (4-35); Aspartate Amino Transferase* 81 U/L (12-35)
[2024-09-22 08:40] LABS: Blood Urea Nitrogen* < 2 mg/dL (5-24)
--- NOTE | 2024-09-22 09:18 | PM.ANPOST ---
Post Anesthesia Note Post Anesthesia Note Patient seen: Inpatient Respiratory Status: adequate Cardiovascular Status: adequate Mental Status: baseline Pain: adequate Temp: baseline Anesthetic awareness: N/A Complications: none Follow care: none
[2024-09-22 10:08] LABS: Rapid Plasma Reagin (RPR) Non Reactive (Non Reactive)
[2024-09-22] MEDS: ENOXAPARIN 40 MG/0.4 ML INJ SUBCUT (14:06)
[2024-09-22 14:16] LABS: Hematocrit 27.5 % (33.0-51.0); Hemoglobin* 9.1 gm/dL (12.0-16.0); Mean Corpuscular HGB Conc 33 gm/dL (32-36); Mean Corpuscular Hemoglobin 31 pg (26-34); Mean Corpuscular Volume 93 fL (80-100); Platelet Count* 165 K/uL (140-440); Red Blood Count 2.96 m/uL (4.00-5.20); White Blood Count* 10.74 K/uL (4.50-11.00)
[2024-09-22 14:34] LABS: Alanine Aminotransferase* 139 U/L (4-35); Aspartate Amino Transferase* 78 U/L (12-35); Blood Urea Nitrogen* 3 mg/dL (5-24); Creatinine* 0.6 mg/dL (0.5-1.5); Est. Creatinine Clearance* 111.35; Estimated Glomerular Filt Rate 122 ml/min; Slide Review Reflex No
[2024-09-22 20:10] LABS: Hematocrit 28.7 % (33.0-51.0); Hemoglobin* 9.5 gm/dL (12.0-16.0); Mean Corpuscular HGB Conc 33 gm/dL (32-36); Mean Corpuscular Hemoglobin 31 pg (26-34); Mean Corpuscular Volume 93 fL (80-100); Platelet Count* 174 K/uL (140-440); White Blood Count* 10.68 K/uL (4.50-11.00)
[2024-09-22 20:14] LABS: Slide Review Reflex No
[2024-09-22 20:30] LABS: Alanine Aminotransferase* 126 U/L (4-35); Aspartate Amino Transferase* 65 U/L (12-35); Blood Urea Nitrogen* 4 mg/dL (5-24); Creatinine* 0.5 mg/dL (0.5-1.5); Est. Creatinine Clearance* 133.62; Estimated Glomerular Filt Rate 128 ml/min
[2024-09-23 00:37] VITALS: BP 92/60; PULSE 75; RESP 16; TEMP 36.4; O2SAT 98
[2024-09-23] MEDS: ACETAMINOPHEN 500 MG TABLET 1000 MG PO ×4 (01:01→19:44)
[2024-09-23] MEDS: ENOXAPARIN 40 MG/0.4 ML INJ SUBCUT ×2 (01:06→13:32)
[2024-09-23] MEDS: KETOROLAC 30 MG/ML inj IVP ×2 (02:25→08:05)
[2024-09-23 04:20] VITALS: BP 110/72; PULSE 72; RESP 16; TEMP 36.4; O2SAT 97
[2024-09-23 07:26] LABS: Hemoglobin* 10.3 gm/dL (12.0-16.0)
--- NOTE | 2024-09-23 07:51 | PM.OBPNVD1 ---
OB - PN:Subj Subjective Date Seen: 09/23/24 Narrative: Denisse is a 33 y.o. G 1 P 1 who was admitted to L & D for IOL for Atypical HELLP syndrome. ?She had a section that was complicated by PPH of 1002. I rounded on her for Dr. Kerr. But did review patient case with her. Per her recommendation, another AST/ALT repeated today. Patients blood pressures have remained low and patient reports she is feeling well today. ?The pain is well controlled with current medications. ?She has no new complaints. ?She is breast feeding and reports things are going well. the patient has done well.? Vitals have been stable.? She has remained afebrile.? Has a good appetite, is tolerating a general diet. ?She is voiding without difficulty.? She is passing gas and has not had a bowel movement.? She is ambulating and denies any dizziness.? Has small amount of rubra lochia. Magnesium was discontinued overnight, patient reports she is feeling much better since it has stopped. Problems: Atypical HELLP, improving AST/ALT labs with normortensive to low BP's OB - PN: Obj Exam Physical Exam: Vital signs: Temp Pulse Resp BP Pulse Ox O2 Del Method 97.6 F 72 16 110/72 97 Room Air 09/23/24 04:20 09/23/24 04:20 09/23/24 04:20 09/23/24 04:20 09/23/24 04:20 09/23/24 04:20 Narrative: GENERAL APPEARANCE:? normal affect, alert, no distress MOOD:? appropriate CHEST:? clear to auscultation HEART:? regular rate and rhythm ABDOMEN:? soft, non-tender the uterine fundus is At Umbilicus, Midline and is appropriate for the stage of recovery. EXTREMITIES:? normal and trace edema INCISION: Dressing in place, to be removed this am; Clean, dry, and intact. Patient desired to remove in shower OB - PN: Obj Data Labs Labs: Laboratory Results - last 24 hr 09/20/24 09/22/24 09/22/24 16:03 08:05 14:09 WBC 12.40 H 10.74 RBC 3.07 L 2.96 L Hgb 9.4 L 9.1 L Hct 28.1 L 27.5 L MCV 92 93 MCH 31 31 MCHC 34 33 Plt Count 160 165 BUN < 2 L 3 L Creatinine 0.4 L 0.6 Estimated Creat Clear 167.03 111.35 Estimated GFR 135 122 AST 81 H 78 H ALT 161 H 139 H RPR Screen Non Reactive 09/22/24 09/23/24 20:02 07:19 WBC 10.68 RBC 3.10 L Hgb 9.5 L 10.3 L Hct 28.7 L MCV 93 MCH 31 MCHC 33 Plt Count 174 BUN 4 L Creatinine 0.5 Estimated Creat Clear 133.62 Estimated GFR 128 AST 65 H ALT 126 H RPR Screen OB - PN: A/P Delivery Assessment and Plan (1) Pre-eclampsia, severe: Status: Acute (2) Obesity affecting : Status: Acute (3) care and examination immediately after delivery: Status: Acute (4) Lactating mother: Status: Acute Plan day: 1 Plan: routine care Comments: plan: , may see if needed Hgb 10.3. Atypical HELLP Labs stable with trending, repeat AST/ALT ordered for this morning Continue to monitor BP, although have been low to normotensive Plan reviewed with MD ANDREIA Anticipate discharge home tomorrow if stable
[2024-09-23 08:21] VITALS: BP 105/70; PULSE 64; RESP 16; TEMP 36.8; O2SAT 97
[2024-09-23 09:22] LABS: Alanine Aminotransferase* 123 U/L (4-35); Aspartate Amino Transferase* 48 U/L (12-35)
[2024-09-23 13:34] VITALS: BP 110/73; PULSE 103; RESP 16; TEMP 36.6; O2SAT 97
[2024-09-23] MEDS: IBUPROFEN 600 MG TABLET PO ×2 (13:51→19:45)
[2024-09-23 18:31] VITALS: BP 112/76; PULSE 64; RESP 16; TEMP 36.9; O2SAT 98
[2024-09-23 23:55] VITALS: BP 109/70; PULSE 64; RESP 16; TEMP 36.8; O2SAT 98
[2024-09-24] MEDS: ACETAMINOPHEN 500 MG TABLET 1000 MG PO ×3 (02:25→15:10)
[2024-09-24] MEDS: FERROUS SULFATE 325 MG TABLET PO (02:26)
[2024-09-24] MEDS: IBUPROFEN 600 MG TABLET PO (02:26)
[2024-09-24] MEDS: ENOXAPARIN 40 MG/0.4 ML INJ SUBCUT (05:34)
[2024-09-24 05:42] VITALS: BP 107/73; PULSE 67; RESP 16; TEMP 36.6; O2SAT 98
[2024-09-24] MEDS: DOCUSATE SODIUM 100 MG CAPSULE PO (08:58)
--- NOTE | 2024-09-24 08:59 | PM.OBPNVD1 ---
OB - PN:Subj Subjective Date Seen: 09/24/24 Narrative: Denisse is a 38 y.o. G 1 P 1 who was admitted to L & D for severe pre-eclampsia. ?She had a section that was complicated by PPH of 1002. The patient feels well. ?The pain is well controlled with current medications. ?She has no new complaints. ?She is breast feeding and reports things are going well. the patient has done well.? Vitals have been stable.? She has remained afebrile.? Has a good appetite, is tolerating a general diet. ?She is voiding without difficulty.? She is passing gas and has had a bowel movement.? She is ambulating and denies any dizziness.? Has small amount of rubra lochia. Problems: 10.3 OB - PN: Obj Exam Physical Exam: Vital signs: Temp Pulse Resp BP Pulse Ox O2 Del Method 97.8 F 67 16 107/73 98 Room Air 09/24/24 05:42 09/24/24 05:42 09/24/24 05:42 09/24/24 05:42 09/24/24 05:42 09/24/24 05:42 Narrative: GENERAL APPEARANCE:? normal affect, alert, no distress MOOD:? appropriate CHEST:? clear to auscultation HEART:? regular rate and rhythm ABDOMEN:? soft, non-tender the uterine fundus is At Umbilicus, Midline and is appropriate for the stage of recovery. EXTREMITIES:? normal and no edema INCISION: Healing well, no surrounding erythema, abnormal induration or discharge OB - PN: Obj Data Labs Labs: Laboratory Results - last 24 hr 09/23/24 07:19 AST 48 H ALT 123 H OB - PN: A/P Delivery Assessment and Plan (1) Pre-eclampsia, severe: Status: Acute (2) Obesity affecting : Status: Acute (3) care and examination immediately after delivery: Status: Acute (4) Lactating mother: Status: Acute (5) Status post delivery: Status: Acute Plan Comments: plan: Routine post-op , may see if needed Hgb 10.3. Iron supplement ordered orally every other day HELLP, ALT/AST stable with trending Anticipate discharge tomorrow, she had considered going home today but isn't sure. would round if she decided to go home.
[2024-09-24 09:15] VITALS: BP 113/60; PULSE 54; RESP 16; TEMP 36.8; O2SAT 96
[2024-09-24 13:06] VITALS: BP 102/68; PULSE 70; RESP 16; TEMP 36.6; O2SAT 98
[2024-09-24] MEDS: OXYCODONE 5 MG TABLET PO (13:23)
--- NOTE | 2024-09-24 13:57 | P.DS_ITS ---
DS: Providers Provider Date Seen: 09/24/24 Date of admission: 09/20/24 14:03 Primary care physician: Not a Local Provider Admitting Clinician: Catalina Cox MD Attending Physician on discharge: Andrea Ramírez MD Date of Discharge: 09/24/24 DS: Diagnosis Discharge Diagnosis (1) Pre-eclampsia, severe: Status: Acute (2) Transaminitis: Status: Acute (3) Lactating mother: Status: Acute (4) Breast mass, right: Status: Acute Exam Narrative: Exam Narrative: VITAL SIGNS: As noted above. GENERAL APPEARANCE: Alert, cooperative female in no acute distress. MOOD & AFFECT: Normal. HEART: Regular rate and rhythm without murmurs. LUNGS: Lungs are clear to auscultation bilaterally. No crackles, wheezes, or rhonchi. ABDOMEN: Soft, non-distended and nontender. Incision healing well without surrounding erythema, induration or abnormal discharge. : Normal lochia. EXTREMITIES: Nonedematous. Well perfused. Nontender. NEURO: Intact. Const: Vital Signs, click to edit/add: Vital Signs - 24 hr 09/23/24 18:31 09/23/24 23:55 09/24/24 05:42 Temperature 98.4 F 98.3 F 97.8 F Pulse Rate [Pulse Oximeter] 64 64 67 Respiratory Rate 16 16 16 Blood Pressure [Le ft Arm] 112/76 109/70 107/73 Pulse Oximetry 98 98 98 Oxygen Delivery Me thod Room Air Room Air Room Air 09/24/24 09:15 09/24/24 13:06 Temperature 98.2 F 97.8 F Pulse Rate [Pulse Oximeter] 54 L 70 Respiratory Rate 16 16 Blood Pressure [Le ft Arm] 113/60 102/68 Pulse Oximetry 96 98 Oxygen Delivery Me thod Room Air Room Air OB - DS: Summary Hospital Course Hospital Course: The patient is a 33 year old G 1 P 1 at 36 5/7 weeks gestation that was admitted to the Center on 09/20/24 for induction of labor in the setting of atypical severe preeclampsia/possible atypical HELLP syndrome. She had an uncomplicated delivery due to failed induction of labor. She delivered a viable female . She is breast feeding. the patient has done well. Patient completed 24 hours of magnesium sulfate for seizure prophylaxis. Patient has completed more than 24 hours of observation after discontinuing magnesium sulfate therapy. All of her vital signs have remained normal. No [employer] irritability symptoms. Transaminitis improving. Peripartum Data delivery method: Primary C/S; Labored Procedures: Procedures Operation Date: 09/22/24 00:45 Actual Procedure Side Surgeon p LOW TRANSVERSE PRIMARY Section, EXCISION LEFT PARATUBAL CYST. Fabby Barajas MD complications: none Infant Gender: Female Infant Discharge Plan: Home Status at Discharge Functional status at discharge: independent ambulation Overall status at discharge: patient is progressing back to baseline Time Spent with Patient Time attestation: Total time spent providing and/or coordinating discharge services: Time spent: Less than 30 minutes Discharge Plan Discharge Disposition: Home, Self-Care Date of Admission: 09/20/24 14:03 Attending Provider on Discharge: Sindy Ramírez Primary Care Provider: Provider,Not a Local Condition: Stable Anticipated Discharge Date/Time: 09/24/24 14:01 Discharge Medications: New acetaminophen 500 mg Tablet 1,000 mg PO Q6H PRN (Reason: Pain) Qty: 30 0RF docusate sodium 100 mg Capsule 100 mg PO DAILY Qty: 30 0RF ibuprofen 600 mg Tablet 600 mg PO Q6H PRN (Reason: Pain) Qty: 30 0RF oxycodone 5 mg Tablet 5 - 10 mg PO Q4H PRN (Reason: Pain) Qty: 15 0RF Continued DHA 200 mg capsule 200 mg PO DAILY calcium carbonate-vitamin D3 600 mg-10 mcg (400 unit) capsule 1 cap PO DAILY (DME) Blood Pressure Cuff Misc See Rx Instructions .Route Qty: 1 0RF Rx Instructions: As directed Discontinued aspirin 81 mg tablet,chewable 81 mg PO QDAY Discharge Orders: Discharge Order (Routine); Ordered 09/24/24 Ordered By: Sindy Ramírez Patient Education: OB /Breast Feeding Additional Instructions: Measure blood pressures at home twice a day. Notify clinic if there are blood pressures persistently more than 150 systolics, 100s diastolics or if any symptoms such as headaches that do not go away with pain medication, visual changes such as dark spots in vision, pain in the upper abdomen-that moves towards the upper right side. Follow-up in clinic in 3-5 days after discharge for blood pressure check, re evaluation of liver enzymes. Follow-up in clinic in 2 weeks for incision check and follow-up. Follow-up in 6 weeks in clinic for regular visit. Activity Level: No Weight Bearing Activity Detail: Nothing vaginally for 6 weeks, no lifting more than 15-20 pounds for 6 weeks Discharge Diet: Regular Follow Up Appointments: Provider,Not a Local [Primary Care Provider] - Forms: [employer] Info Instructions
--- NOTE | 2024-10-07 10:33 | W.PM.NB ---
Nerve Block Nerve Block Time Seen by Provider: 01:56 Date Seen: 09/22/24 Type of block requested by surgeon for post-operative analgesia: TAP Side: bilateral Time out performed: Yes Verification of patient name: Yes Verification of date of : Yes Site marking: site marked Name of person performing procedure: mantyl Continuous monitoring Was continuous monitoring of O2 sat, B/P, statistical clerk advertising, recorded every 15 minutes?: Yes Procedure Checklist: sterile prep, needles and gloves Ultrasound guided. Images saved: Yes Medications given in 5ml increments after negative aspiration: Marcaine %: 0.25 mL: 30 and Exparel mL: 10 Patient tolerated procedure well: Yes Block Charges Block Charge (with Pro Fee): TAP Bilateral Use of Ultrasound Machine for Block: Yes- US Guidance/pain block
== END 2024-09-24 16:35 | disposition home or self-care (01) | DRG 540 ==
PROVIDERS: Advanced Practice Midwife; Obstetrics & Gynecology; Admitting Provider Obstetrics & Gynecology; Visit Provider Obstetrics & Gynecology
PROC: 10D00Z1 Extraction of Products of Conception, Low, Open Approach (ICD-10-PCS; CPT 59514; principal; 2024-09-22 00:30)
DX: O14.24 HELLP syndrome, complicating childbirth (principal); O61.0 Failed medical induction of labor; O72.1 Other immediate postpartum hemorrhage; G89.18 Other acute postprocedural pain; O92.29 Other disorders of breast associated with pregnancy and the puerperium; O34.83 Maternal care for other abnormalities of pelvic organs, third trimester; N83.8 Other noninflammatory disorders of ovary, fallopian tube and broad ligament; Z37.0 Single live birth; Z3A.36 36 weeks gestation of pregnancy; O90.81 Anemia of the puerperium; D62 Acute posthemorrhagic anemia
CPT/HCPCS: 01967; 01968; 36415; 59200; 64488; 76942; 82565; 82570; 83735; 84156; 84450; 84460; 84520; 85018; 85025; 85027; 85384; 85610; 85730; 86592; 86850; 86900; 86901; 88307; 99140; A9270; C1726; J0456; J1650; J1885; J2210; J2371; J2795; J3010; J3475; J7050; J7120

== ENCOUNTER 2024-10-05 09:40 | Outpatient (CLI) | payer BC, SELFPAY ==
--- NOTE | 2024-10-05 09:45 | CRLHL7_ITS ---
For Patients: As a result of the Cures Act, medical imaging exams and procedure reports are released immediately into your electronic medical record. You may view this report before your referring provider. If you have questions, please contact your health care provider. RIGHT DIAGNOSTIC MAMMOGRAM WITH COMPUTER-AIDED DETECTION AND TOMOSYNTHESIS RIGHT BREAST ULTRASOUND CLINICAL HISTORY: RIGHT breast lump. COMPARISON: None. TECHNIQUE: Digital RIGHT mammogram in two projections with computer-aided detection. Tomosynthesis was used in this interpretation. Real-time ultrasound imaging of RIGHT breast with imaging documentation. BREAST COMPOSITION: The breasts are extremely dense, which lowers the sensitivity of mammography. FINDINGS: 3D CC/MLO RIGHT breast mammogram images submitted. No architectural distortion. Nodular density is present within the medial RIGHT breast. No suspicious calcifications. No adenopathy. Targeted RIGHT breast ultrasound performed in the area of concern 10 o`clock, 9 cm from the nipple. In this location, there is a small cystic structure measuring 5 x 5 x 5 mm. Additional targeted sonogram RIGHT breast 3 o`clock, 3 cm from the nipple, performed corresponding to the mammogram findings. In this location, there is a solid circumscribed hypoechoic mass measuring 2.6 x 2.5 x 2.2 cm with internal reticular echoes compatible with benign fibroadenoma. IMPRESSION: Simple cyst RIGHT breast 10 o`clock, 9 cm from the nipple, measuring 5 mm. Fibroadenoma RIGHT breast 3 o`clock, 3 cm from the nipple, measuring 2.6 cm. RECOMMENDATIONS: Clinical follow-up. Age-appropriate screening mammography. A lay language report of this examination will be provided to the patient. BI-RADS Category 2: Benign Dictated by Waldo Moreno MD @ 10/05/2024 11:40:40 AM /sp SP/Dictated by: Waldo Moreno MD @ 10/05/2024 11:40:00 AM (Electronically Signed)
--- NOTE | 2024-10-05 10:15 | CRLHL7_ITS ---
For Patients: As a result of the Century Cures Act, medical imaging exams and procedure reports are released immediately into your electronic medical record. You may view this report before your referring provider. If you have questions, please contact your health care provider. PLEASE SEE RIGHT BREAST DIAGNOSTIC MAMMOGRAM PERFORMED SAME DAY. CRL:sp SP/Dictated by: Waldo Moreno MD @ 10/05/2024 11:40:00 AM (Electronically Signed)
== END 2024-10-05 09:41 | disposition home or self-care (01) ==
LOC: MAMMO 09:40
PROVIDERS: Visit Provider Obstetrics & Gynecology
DX: N63.10 Unspecified lump in the right breast, unspecified quadrant (principal)
CPT/HCPCS: 76642; 77065; G0279

== ENCOUNTER 2024-10-11 09:16 | Outpatient (CLI) | payer BC, SELFPAY ==
--- NOTE | 2024-10-11 10:25 | P.LACCB_ITS ---
Consult Note - Mom Date of Visit Date of visit: 10/11/24 Reason for consultation: Breast/Nipple Issue (sore nipples, help with latch) Visit Code: Visit Patient's Information Phone number: [phone] : 1 Para: 1 Allergies No Known Drug Allergies Allergy (Verified 09/30/24 08:26) Mother's Medical History: Medical History (Updated 09/25/24 @ 00:01 by Background Stepan) Fibroadenoma of breast ?D24.9 - Benign neoplasm of unspecified breast (ICD-10) Delivery Information Delivery type: Vaginal Gestational Age: 37 Gestational Weight For Age: AGA Weight: 2.74 kg Discharge Weight: 2.664 kg Percentage weight loss: 5.1 Baby's Information Baby's Age at Visit: 19 days Baby's Provider or Clinic: [facility] Jaundice: No Past Experience Past Experience: No Current Frequency of Day Feedings: every 3 hrs day and night, waking her for feedings Both Breasts: Yes (sometimes) Suck: strong Latch: not sure if it's deep enough Length of Time: 5-10 min ea side Pumping Pumping: Yes Quantity Pumped: 1-2 oz if only nurses on one breast Supplementing EBM Supplement: No Formula Supplement: No Baby Elimination Number of Wet Diapers a Day: ea feeding Number of BM a Day: 4-6/day, yellow in color Breast/Nipple Condition Breast Information: Breasts are symmetrical with rounded lower quadrants, intramammary distance is less than 1.5 inches. No erythema. Nipples are supple, everted prior to feeding. Breast Shape: Round Engorgement: No Maternal Nipple Condition - Left: Common Nipple and Blanching (after feedings) Maternal Nipple Condition - Right: Common Nipple and Blanching (after feedings) Sore Nipples: Yes Interventions for Sore Nipples: Lansinoh/Nipple Cream Baby Assessment Skin: Normal Tongue/frenulum: Normal/elastic and Other (upper lip tie, frenulum attaches to bottom of upper gum, tight) Palate: Average Lips: Relaxed and Symmetrical Jaw Alignment: Symmetrical Mucosa: [place], moist Onsite Observation Pre-Feed weight: 3.094 kg Post-Feed weight: 3.158 kg Milk Transferred (mL): 64 (7 min ea R and L breast, ) Position: Football Attachment/latch-on achieved: Easily Suck pattern: Suck burst and normal rest Swallow: Audible, consistent Behavior following feed: Alert, content Pre-Nursing Left Nipple: Within Normal Limits Pre-Nursing Right Nipple: Within Normal Limits Post-Nursing Left Nipple: Within Normal Limits Post-Nursing Right Nipple: Creased/Beveled Assessments/Interventions Assessments/Interventions: Watched baby latch and breastfeed; first on mom's right breast. While baby had a wide open mouth with lips flanged, mom's nipple was beveled when baby came off. Not too sore per mom. Discussed the element of a deeper latch in addition to a wide latch with mom. As she latched baby on her left breast, talked her through a yawn wide mouth before bringing baby to the breast. Babe then nursed about 7 minutes. When babe unlatched, mom's nipple more rounded than usual per her report and more comfortable. Other issues discussed: Pumping for freezer milk supply, not pumping if baby only nurses one side if not needed to balance supply/demand nature of breastmilk Introducing bottles around 1 month of age; gives some time to work on the deeper latch before introduce another feeding method. Paced bottle feeding encouraged. Nipple care for healing while working on deeper latch Role of lip tie (potential posterior tongue tie) that may be impacting nursing; if babe can get a deeper latch and mom's nipples can heal, can hold off on referral. Mom ok with waiting and would like to try other measures before proceeding with lip/tongue evaluation. Babe feeding pattern-ok to let go longer stretches at night given excellent weight gain- ok to ease into it; start with going 4 hours for several days, then can build from there. Mom can also wake baby if needed to nurse for comfort for hersefl. Education provided: Asymmetric latch technique for wide/deep latch to increase milk, Transfer for baby and increase comfort for mom, Sore nipple treatment options, Pumping for milk management and Milk collection, storage Follow-Up Suggested follow up: Appointment as needed Recommend baby be seen by provider for:: scheduled appointment on 10/15/24. Time Spent Time spent with patient (min): 60 Meds Home Medications and Allergies Home Medications ?Medication ?Instructions ?Recorded ?Confirmed ?Type docosahexaenoic acid 200 mg 200 mg PO DAILY 03/03/24 09/30/24 History capsule ( DHA) Allergies Allergy/AdvReac Type Severity Reaction Status Date / Time No Known Drug Allergies Allergy Verified 09/30/24 08:26
== END 2024-10-11 09:17 | disposition home or self-care (01) ==
LOC: OB LAC 09:17
PROVIDERS: Visit Provider Obstetrics & Gynecology
DX: Z39.1 Encounter for care and examination of lactating mother (principal)
CPT/HCPCS: G0463

== ENCOUNTER 2024-10-15 11:33 | Outpatient (CLI) | payer BC, SELFPAY | END 2024-10-15 11:34 | disposition home or self-care (01) | PROVIDERS: PCP Physician Assistant; Visit Provider Physician Assistant | DX: R74.01 Elevation of levels of liver transaminase levels (principal); R30.0 Dysuria | CPT/HCPCS: 84450; 84460; 87086 ==